=== PATIENT | male | born 1990 | race Caucasian/White ===

== ENCOUNTER 2016-07-10 20:47 | Emergency (ER) | payer OTHER ==
[~2016-07-10] VITALS: Ht 177.8 cm; Wt 99.8 kg
[2016-07-10 21:04] VITALS: BP 108/70
[2016-07-10] MEDS ORDERED: LIDOCAINE 1% 500 MG/50 ML VIAL INJ ONE (22:15)
--- NOTE | 2016-07-10 22:15 | NUR ---
TO ER BED 4
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
--- NOTE | 2016-07-10 23:00 | NUR ---
Patient has a 3 cm laceration to RT MIDDLE FINGER Dr. SHABAZZ applied sutures using sterile technique. Edges well approximated. Site cleansed with NS. No bleeding noted. Pt tolerated well.
[2016-07-10] MEDS ORDERED: BACITRACIN OINT 500 UNITS/GM PKT TP ONE (23:05)
[2016-07-10 23:15] VITALS: BP 108/70
== END 2016-07-10 23:15 | disposition home or self-care (01) ==
LOC: MED 20:47
DX: S61.213A Laceration without foreign body of left middle finger without damage to nail, initial encounter (principal); F17.210 Nicotine dependence, cigarettes, uncomplicated; W26.0XXA Contact with knife, initial encounter; Y93.89 Activity, other specified; Y92.89 Other specified places as the place of occurrence of the external cause; Y99.8 Other external cause status
CPT/HCPCS: 12001; 90471; 90715; 99283; J2001

== ENCOUNTER 2016-07-19 19:43 | Emergency (ER) | payer OTHER ==
[~2016-07-19] VITALS: Ht 177.8 cm; Wt 107.6 kg
[2016-07-19 19:45] VITALS: BP 127/78
--- NOTE | 2016-07-19 19:53 | NUR ---
PT TAKEN OF3
--- NOTE | 2016-07-19 19:56 | NUR ---
SUTURES WAS REMOVED BY ERMD WITH ASEPTIC TECHNIQUE, PATIENT TOLERATED WELL.
[2016-07-19] MEDS ORDERED: BACITRACIN OINT 500 UNITS/GM PKT TP ONE (20:05)
[2016-07-19 20:18] VITALS: BP 127/78
--- NOTE | 2016-07-19 20:18 | NUR ---
Patient discharged with v/s stable. Written and verbal after care instructions given and explained. Patient verbalized understanding. Ambulatory with steady gait. All questions addressed prior to discharge. Advised to follow up with PMD OR RETURN TO ER IF CONDITION WORSENS.
== END 2016-07-19 20:21 | disposition home or self-care (01) ==
LOC: MED 19:43
DX: S61.212D Laceration without foreign body of right middle finger without damage to nail, subsequent encounter (principal); F17.210 Nicotine dependence, cigarettes, uncomplicated
CPT/HCPCS: 99282